=== PATIENT | male | born 1950 | race Caucasian/White ===

== ENCOUNTER 2018-01-10 17:27 | Emergency (ER) | payer MEDICARE, BC ==
[~2018-01-10] VITALS: Ht 182.9 cm; Wt 93.3 kg
[~2018-01-10 17:27] MED LIST: HYDR-569 PO
[2018-01-10] MEDS ORDERED: BUPIVAcaine/PF 2.5 mg/ml (0.25%) 30ml vial IJ ONE (18:45)
[2018-01-10] MEDS ORDERED: DOXY100C2 PO (20:19)
== END 2018-01-10 20:30 | disposition home or self-care (01) ==
LOC: ER 17:28 → MERGE 17:28 → ER 20:30
DX: S61.212A Laceration without foreign body of right middle finger without damage to nail, initial encounter (principal); Z88.0 Allergy status to penicillin; W22.8XXA Striking against or struck by other objects, initial encounter; Y93.89 Activity, other specified; Y92.89 Other specified places as the place of occurrence of the external cause; Y99.8 Other external cause status
CPT/HCPCS: 12002; 99283; A6255; A6449; J3490